=== PATIENT | male | born 1945 | race Caucasian/White ===

== ENCOUNTER 2020-09-25 10:54 | Emergency (ER) | payer OTHER ==
--- NOTE | 2020-09-25 11:57 | ED.PDOC ---
History of Present Illness - General Chief Complaint: Respiratory Problem Stated Complaint: COUGH , SORETHROAT , HEADACHE etc Time Seen by Provider: 09/25/20 11:27 Source: patient, EMS notes reviewed, family Additional Information: The patient is a 75-year-old male that presents to the emergency department complaining of cough sore throat body ache, Especially in his lower back bilaterally. He tells triage left flank pain below the time of my evaluation he states his aches completely all over his body. States that his tested positive for Covid and he would like a Covid test that he can go to clinic and s danika Malagon - History of Present Illness Timing/Duration: constant, other - 3days Cough Quality/Degree: mild Possible Cause: illness exposure Improving Factors: nothing Worsening Factors: nothing Associated Symptoms: muscle aches, nasal congestion, nasal drainage, other - " chest Congestion " he states Respiratory Risk Factors: exposure to illness Allergies/Adverse Reactions: Allergies Azithromycin Allergy (Verified 09/25/20 12:33) Review of Systems - Review of Systems Constitutional: States: chills. Denies: fever EENTM: States: see HPI. Denies: blurred vision, tearing Respiratory: States: cough. Denies: short of breath, stridor Cardiology: Denies: chest pain, palpitations, syncope Gastrointestinal/Abdominal: Denies: abdominal pain, constipation, diarrhea, nausea Genitourinary: Denies: discharge, hematuria Musculoskeletal: Denies: gout, muscle stiffness Neurological: Denies: anxiety, depressed Endocrine: Denies: flushing, intolerance to cold Hematologic/Lymphatic: Denies: anemia, easy bleeding Family Medical History - Family History Father Family History: Unknown Living Status: Still Living Physical Exam - Physical Exam General Appearance: Alert, Anxious Eye Exam: bilateral normal, bilateral abnormal EOM ENT Exam: normal ENT inspection, hearing grossly normal, pharyngeal erythema Neck: non-tender, full range of motion, supple, normal inspection, trachea midline, limited range of motion, lymphadenopathy (R) Respiratory: chest non-tender, lungs clear, normal breath sounds, no respiratory distress, no accessory muscle use Cardiovascular/Chest: normal peripheral pulses, regular rate, rhythm, no edema, no JVD Gastrointestinal/Abdominal: normal bowel sounds, non tender, soft, other - no CVA tenderness bilaterally Extremity: normal range of motion, non-tender, normal inspection 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 Respiratory panel and strep ordered. Reports pending.We will discharge patient home to follow-up outpatient Departure - Departure Clinical Impression: Strep pharyngitis, COVID-19 Disposition: Discharge to Home or Self Care Condition: Good Departure Forms: ED Discharge - Pt. Copy, Patient Portal Self Enrollment Referrals: MAULIK DICK [Primary Care Provider] - 1-2 Weeks Additional Instructions: -Follow-up outpatient clinic for outpatient appintments for bamlunivimab -Return to the emergency department as needed -Return to emergency room immediately develop any shortness of breath any difficulty breathing hypoxia chest pains or any other concerns -[id number] Tylenol and ibuprofen as needed for fevers return to emergency department if you not able to control your fever -Piro-juj-mzhbilg cough medicines -Very important to follow-up in 1 to 2 days with your primary care physician
--- NOTE | 2020-09-25 12:06 | RAD ---
EXAM DESCRIPTION: Chest,1 View CLINICAL HISTORY: SOB COMPARISON: 21 May 2019 TECHNIQUE: AP portable chest FINDINGS: The lungs are clear. There is no infiltrate or effusion. The heart is normal size. IMPRESSION: Normal portable chest Electronically signed by: Maynor Rivero MD 09/25/2020 12:04 PM INSTRUMENT CALIBRATOR
[2020-09-25] MEDS ORDERED: PENICILLIN BENZATHINE 1.2 MU 1.2 MU/2 ML SYG IM ONE (13:13)
[2020-09-25 13:56] VITALS: BP 151/85
[2020-09-25 13:58] VITALS: TEMP 97.7; O2SAT 97
== END 2020-09-25 13:57 | disposition home or self-care (01) ==
LOC: ER 10:54
DX: U07.1 COVID-19 (principal); J02.0 Streptococcal pharyngitis
CPT/HCPCS: 71045; 87486; 87581; 87633; 87635; 87880; J0561